=== PATIENT | male | born 1995 | race Caucasian/White ===

== ENCOUNTER 2019-03-03 09:29 | Emergency (ER) | payer OTHER ==
[2019-03-03] MEDS ORDERED: NORCO 10-325 T1 EACH PO (10:58)
--- NOTE | 2019-03-03 11:33 | NUR ---
MET WITH PT AFTER HE RETURNED FROM IMAGING. HE IS ALERT, ORIENTED AND ALSO SUPPORTED BY 2 FELLOW WORKERS. PT IS IN A NECK BRACE, PAIN AT 4, AND HIS MOTHER AND G.FRIEND HAVE BEEN NOTIFIED IN [place] BY LAKESHIA PALOMARES. MODIFIED TRAUMA ACTIVATED A RESULT OF PT FALLING OFF A 24 FT LADDER AT WORK. CONNECTED WELL WITH PT AND FRIENDS, PT DECLINED PRAYER AT THIS TIME. WILL FOLLOW NEEDED
== END 2019-03-03 11:34 | disposition home or self-care (01) ==
LOC: ED 09:29
DX: S09.90XA Unspecified injury of head, initial encounter (principal); S42.352A Displaced comminuted fracture of shaft of humerus, left arm, initial encounter for closed fracture; S51.032A Puncture wound without foreign body of left elbow, initial encounter; F17.200 Nicotine dependence, unspecified, uncomplicated; Z23 Encounter for immunization; W11.XXXA Fall on and from ladder, initial encounter
CPT/HCPCS: 70450; 71260; 72125; 73060; 74177; 80053; 83690; 85025; 85610; 85730; 90471; 90715; 99284-25; G0480; J2270; J2405; J7030; Q9967

== ENCOUNTER 2019-03-11 05:50 | Day surgery (SDC) | payer OTHER ==
[~2019-03-11] VITALS: Ht 185.4 cm; Wt 94.3 kg
[~2019-03-11 05:50] MED LIST: IBUPROFEN200 MG PO; MELATONIN5 M2 PO; MEN'S MULTIVIT1 EACH PO; MIRALAX17 GM PO; NORCO 10-325 T1 EACH PO
[2019-03-11] MEDS ORDERED: IBUPROFEN200 M1 PO (06:15)
[2019-03-11] MEDS ORDERED: EXCEDRIN MIGRA1 EAC2 PO (06:16)
--- NOTE | 2019-03-11 09:20 | NUR ---
03/11/19 0920 Katarzyna Sargent 0910 PATIENT ARRIVES TO PACU SLEEPING, DOES NOT RESPOND TO VERBAL STIMULI. RESP EVEN AND UNLABORED, ROOM AIR SATS 95%. PATIENT HAS CHRISTINE DRESSING IN PLACE, ARM IN SLING. 09 DR KLEIN REQUESTING OVERNIGHT ADMISSION FOR OBSERVATION OF LEFT ARM SWELLING POST OP, BARGE HAND AWARE. 09 PATIENT OPENS EYES TO VERBAL STIMULI. RESP EVEN AND UNLABORED, ROOM AIR SATS 96%.
--- NOTE | 2019-03-11 11:45 | NUR ---
PT REQUESTED PAIN MEDICATION FOR 5/10 PAIN. LESS THAN DIME SIZE SPOT OF BLOOD ON CHRISTINE DRESSING. PT REPORTS NUMBNESS AND TINGLING IN LEFT HAND. GENERALIZED SWELLING IN LEFT HAND, X-RAY TAKEN IN PACU. PT TOLERATING WATER, JUICE AND JELLO WELL. ADVANCED DIET TO REGULAR. CYRO CUFF IN PLACE.
--- NOTE | 2019-03-11 12:34 | NUR ---
VITAL SIGNS TAKEN, WNL. PULSE +2 TO LUE. GENERAL SWELLING, NON-PITTING. SOME NUMBESS REPORTED. CAP REFILL <3. CRYOCUFF IN PLACE. PT DENIES PAIN. CALL LIGHT IN REACH.
--- NOTE | 2019-03-11 13:38 | NUR ---
PT REPORTS FINGERS OF LEFT HAND ARE "AWAKE" BUT THUMB IS STILL NUMB. PALM AND BACK OF HAND STILL HAVE GENERALIZED SWELLING. PT STATES PAIN WAS CONTROLLED BY PRN OXY. TOLERATED REG DIET WELL. CYRO CUFF IN PLACE. DRAINAGE ON PICCO DRESSING IS UNCHANGED, OUTLINED.
--- NOTE | 2019-03-11 16:16 | NUR ---
Family was thinking DR John would be coming back to talk to them tonight. I asked what questions they had, They wanted to make sure a work note would be provided, I answered yes at discharge. They are also wanting to know what the results are for the hand x-ray. I called DR John and informed him of these requests, He states will be in to see them tomorrow morning. Also I informed the MD of the results of the hand x-ray, there is a broken bone, states I can tell patient results and DR John will talk to them more about the results tomorrow.
--- NOTE | 2019-03-11 17:03 | NUR ---
PT ARRIVED ON THE FLOOR AWAKE AND ALERT FROM PACU. PT TOLERATED PO INTAKE WELL, VOIDING WELL. PAIN WELL CONTROLED WITH PRN PO OXY. FAMILY REMAINS AT BEDSIDE. FAMILY HAD QUESTIONS, FLORAL DESIGNER CALEB CALLED DR KLEIN TO CLAIFY ANSWERS. FAMILY TOLD OF ANSWERS. PT REQUESTED CYRO-CUFF BE TURNED OFF FOR A LITTLE WHILE. NO NAUSEA, ITCHING. LEFT HAND REMAINS SWOLLEN. DR KLEIN AWARE OF XRAY RESULTS PER LAKESHIA VALDERRAMA.
--- NOTE | 2019-03-11 18:59 | NUR ---
FILLED PATIENT'S CRYO.
--- NOTE | 2019-03-11 19:53 | NUR ---
CALL LIGHT ON. pt REPORTED "THE NERVE BLOCK IS WEARING OFF AND IT'S STARTING TO HURT". CHRISTINE DRESSING CDI, DIME SIZED OLD SHADOWING. pt REPORTED NUMBNESS IN THUMB IS GONE AND HE HAS NORMAL FEELING IN HAND. MD CALLED, NEW ORDER ENTERED.
--- NOTE | 2019-03-11 20:00 | NUR ---
CHARGE NURSE ROUNDING NOTE: L ARM DRESSING , SLING IN LEFT ARM. IVF INFUSING W/O PROBLMES. NO REQUESTS. FRESH WATER AND CALL LIGHT AT BEDSIDE. WATCHING TV
--- NOTE | 2019-03-11 21:55 | NUR ---
ASSESSMENT DONE. pt RESTING IN BED, VISITORS AT BEDSIDE. REPORTED DECREASING PAIN. EDUCATED ON PAIN MANAGEMENT. FOUND CRYOCUFF UNPLUGGED, pt REPORTED UNPLUGGING IT TO "GIVE IT A LITTLE BREAK". EDUCATED ON THE IMPORTANCE OF COLD THERAPY. SLING IN PLACE. CHRISTINE DRESSING CDI. BLINKING GREEN. CRYOCUFF PLUGGED IN AND APPLIED TO AREA. LEFT ARM ELEVATED. READJUSTED FOR COMFORT. LEFT HAND SWOLLEN, APPLIED ICE. PULSE GOOD, CAPILLARY REFILL <3 SECONDS, ELEVATED. WILL CONTINUE TO MONITOR PAIN, VISITOR REPORTED THAT OXY WAS NOT EFFECTIVE FOR pt AND NORCO IS WHAT pt HAS BEEN TAKING, NOTED AND WILL ADDRESS WITH MD IN MORNING pt IS EXPERIENCING PAIN RELIEF FROM CURRENT MEDS. CALL LIGHT WITHIN REACH.
--- NOTE | 2019-03-11 23:46 | NUR ---
CALL LIGHT ON. VISITOR REPORTING pt IN TEARS FROM PAIN. CALLED MD. NEW ORDERS ENTERED.
--- NOTE | 2019-03-12 00:12 | NUR ---
PRN PAIN MED AND SCHEDULED GIVEN (SEE MAR). SISTER AND GIRLFRIEND AT BEDSIDE. pt COPING BETTER AFTER BREATHING EXERCISES. CRYOCUFF REFRESHED. WILL CONTINUE TO MONITOR. CALL LIGHT WITHIN REACH.
--- NOTE | 2019-03-12 00:37 | NUR ---
ROUNDED ON pt. RESTING IN BED, RESPIRATIONS 20. pt STILL IN PAIN DID NOT RATE JUST "BETTER". FOUND CRYOCUFF OFF, pt STATED "IT'S BETTER IF IT'S ON FOR A BIT AND THEN OFF FOR A BIT" EDUCATED ON USE OF CRYOCUFF. pt VERBALIZED UNDERSTANDING. SISTER AND GIRLFRIEND AT BEDSIDE. REFRESHED WATER. CALL LIGHT WITHIN REACH.
--- NOTE | 2019-03-12 01:09 | NUR ---
pt RESTING WITH EYES CLOSED, RESPIRATIONS REGULAR, RATE = 20. CALL LIGHT WITHIN REACH. CRYOCUFF ON.
--- NOTE | 2019-03-12 02:14 | NUR ---
VITALS SIGNS DUE. VSS, I&O RECORDED. pt ROUSED EASILY ALTHOUGH CONFUSED, QUICKLY FELL BACK TO SLEEP. ASSESSMENT DONE. DRAINAGED SPOT ON CHRISTINE INCREASED TO HALF DOLLAR SIZED, CDI. CRYOCUFF ON. SLING ON. HAND ELEVATED. PULSES STRONG, CAP REFILL <3 SECONDS. DID NOT WAKE ENOUGH TO ANSWER QUESTIONS ABOUT PAIN. CALL LIGHT WITHIN REACH.
--- NOTE | 2019-03-12 03:07 | NUR ---
PATIENT HAS BEEN SLEEPING. PATIENT HAS FAMILY IN THE ROOM. PATIENT IS INDEPEDENT IN ROOM. FRESH WATER AND ICE WAS GIVEN. NO OTHER CARES NEEDED.
--- NOTE | 2019-03-12 04:12 | NUR ---
ROUNDED ON pt. AWAKE, RATED PAIN 4/10. PRN PAIN MED GIVEN (SEE MAR). CHRISTINE DRESSING CDI, NO NEW SHADOWING, FLASHING GREEN. CRYOCUFF TO ARM. CALL LIGHT WITHIN REACH.
--- NOTE | 2019-03-12 04:48 | NUR ---
pt HAD POOR PAIN CONTROL AT BEGINING OF SHIFT. MD AWARE. NEW PAIN MEDS EFFECTIVE. FAMILY AT BEDSIDE ALL OF SHIFT. DID REST FOR A COUPLE HOURS. INDEPENDENT IN ROOM. VOIDING QS. IV SL. TOLERATING REGULAR DIET. pt HAS USED CRYOCUFF ON AND OFF, EDUCATION DONE. CHRISTINE FLASHING GREEN. LEFT ARM IN SLING AND ELEVATED. ICE TO SWOLLEN LEFT HAND. USES CALL LIGHT APPROPRIATELY.
--- NOTE | 2019-03-12 05:50 | NUR ---
pt SITTING IN BED. VSS, I&O RECORDED. UP TO TOILET TO VOID. FAMILY AT BEDSIDE. RATED PAIN 4/10. LINENS CHANGED. NO REQUESTS AT THIS TIME. CALL LIGHT WITHIN REACH.
--- NOTE | 2019-03-12 07:12 | NUR ---
RECIEVED BEDSIDE REPORT FROM LAKESHIA HEMPHILL. PT HAD ISSUES WITH PAIN CONTROL ONCE THE BLOCK WORE OFF. PT AWAKE AND ALERT. PT STATED THAT HE FELT OK AT THIS TIME, LEFT HAND IS STILL SWOLLEN.
[2019-03-12] MEDS ORDERED: HYDROCODON-ACE1 EAC8 PO (08:45)
[2019-03-12] MEDS ORDERED: GABAPENTIN300 MG PO (08:45)
--- NOTE | 2019-03-12 09:51 | NUR ---
DISCHARGE TEACHING COMPLETE. DISCUSSED FOLLOW-UP, WHEN TO CALL THE DR, AND ACTIVITY. PT AND FAMILY VERBALIZED UNDERSTANDING. WRITTEN AND VERBAL INSTRUCTIONS GIVEN. IV REMOVED. VITALS TAKEN. ADJUSTED SLING.
--- NOTE | 2019-03-12 10:04 | NUR ---
FAMILY OF PT CALLED, STATING THAT DR KLEIN HAD MENTIONED NEEDING A SPLINT FOR THE LEFT HAND. NO ORDERS FOUND FROM DR KLEIN RE: SPLINT. CALLED DR KLEIN FOR A TELEPHONE ORDER TO APPLY A REGULAR, POST-OP SLINT TO LEFT HAND. ORDER READ BACK.
--- NOTE | 2019-03-12 10:14 | NUR ---
LEFT MSG FOR PT'S SISTER TO CALL BACK TO THE UNIT RE: SPLINT.
--- NOTE | 2019-03-12 10:34 | NUR ---
PT RETURNED TO FORMULA MAKER AND CALLED DOWN TO MED/SURG. CONSERVATION SCIENCE OFFICER YVETTE WENT DOWN TO APPLY SPLINT.
--- NOTE | 2019-03-14 06:29 | OR ---
[facility] [address] [place], [place] [address] Signed DATE OF OPERATION: SURGEON: Smith John MD DATE OF PROCEDURE: 03/11/2019 PREOPERATIVE DIAGNOSIS: Left humeral fracture, comminuted midshaft. POSTOPERATIVE DIAGNOSIS: Left humeral fracture, comminuted midshaft. PROCEDURE PERFORMED: Open reduction and internal fixation of left humerus fracture. COLLECTION SYSTEMS FOREMAN: Rosio Lovett PA-C. ANESTHESIA: General. BLOOD LOSS: 175 mL. IMPLANTS: Eight hole 4.5 mm plate with eight 4.5 screws and two 3.5 interfragmentary screws. BRIEF HISTORY: Prem is a 24-year-old gentleman who fell about 24 feet off the ladder landing on a concrete surface. He had laceration to his elbow and a comminuted midshaft fracture, was substantially displaced and angulated. This was a high-energy incident. The fracture was closed and was treated in a sling and the swelling was allowed to resolve. However, it only improved some. Risks, benefits, alternatives of surgery were discussed with him due to the displacement, which was about 150%, he elected to proceed. DESCRIPTION OF PROCEDURE: Once consent was obtained, he was taken to the operating room. After adequate anesthesia, he was placed on operating room table. All downside pressure points were well padded. The left arm was then prepped and draped in a standard sterile fashion up to the nape of the neck. The standard extensile anterolateral approach was started at Electronically Signed By: SMITH JOHN MD 03/14/19 0629 PATIENT NAME: PREM CHILD OPERATIVE REPORT DATE OF : [birth year] REPORT #: [id number] PHYSICIAN: SMITH JOHN MD PCP: BRYANT JOSHI MD REPORT IS CONFIDENTIAL AND NOT TO BE RELEASED WITHOUT AUTHORIZATION [facility] [address] [place], [place] [address] Signed mid deltoid and extended distally approximately 20 cm. It was taken through skin and subcutaneous tissue. Proximally, the cephalic vein was identified and retracted actually medially in this case. The interval between the deltoid and the biceps was then entered bluntly and the fracture was easily palpable. The interval between the biceps and brachialis was opened distally. The brachialis was then split between the anterior 3rd and posterior 2/3rd. It was then elevated off the anterior humerus. Proximally, the biceps and part of the deltoid insertion was elevated. The fracture was then cleaned under direct vision and reduced using two large bone clamps. Required longitudinal traction, a little bit of varus and angulation. We then checked using image intensifier, was found to be good. I could not really get two clamps on it to hold it because of the comminuted butterfly fragment medially. We then elected to place the plate on the distal shaft of the humerus, aligned it anatomically, and put a screw into it. We then reduced the fracture such that the plate was aligned superiorly and inferiorly. This was then clamped using a Verbrugge clamp and checked again, found to be satisfactory. Two screws were then placed in the proximal piece and the reduction was maintained and all remaining screw holes were drilled and appropriate length screws were placed. We did visualize the musculocutaneous nerve anteriorly and palpated the radial nerve posteriorly, which was not in the fracture site. The image intensifier was brought in. The fracture reduction was found to be good. There was a large posteromedial butterfly fragment. I was able to get a bone hook around this fragment and reduced it pretty closed to its natural position. We then placed two 3.5 mm screws into the butterfly fragment from the anterolateral cortex. This secured the butterfly fragment reasonably well. Once this was completed, range of motion showed good stability. Wound was copiously irrigated with antibiotic solution and closed with 2-0 Vicryl and #0 Stratafix for the fascia. The same for the subcutaneous tissue and gama for the skin. It was dressed with a CHRISTINE wound VAC dressing and he was awakened, taken to the recovery room in satisfactory condition. All sponge, needle, and instrument counts were correct. Smith John MD BA/MODL /[id number] cc: Bryant Joshi MD Electronically Signed By: SMITH JOHN MD 03/14/19 0629 PATIENT NAME: PREM CHILD OPERATIVE REPORT DATE OF : [birth year] REPORT #: [id number] PHYSICIAN: SMITH JOHN MD PCP: BRYANT JOSHI MD REPORT IS CONFIDENTIAL AND NOT TO BE RELEASED WITHOUT AUTHORIZATION [address] [address] Signed Copies: BRYANT JOSHI MD ~ Electronically Signed By: SMITH JOHN MD 03/14/19 0629 PATIENT NAME: PREM CHILD RASTA OPERATIVE REPORT DATE OF : [birth year] REPORT #: [id number] PHYSICIAN: SMITH JOHN MD PCP: BRYANT JOSHI MD REPORT IS CONFIDENTIAL AND NOT TO BE RELEASED WITHOUT AUTHORIZATION
== END 2019-03-12 09:47 | disposition home or self-care (01) ==
LOC: DS 05:50 → OPS 05:50 → DS 06:45 → OPS 06:45 → MS 10:15 → OPS 03-12 09:47
PROVIDERS: Specialist
PROC: 0PSG04Z Reposition Left Humeral Shaft with Internal Fixation Device, Open Approach (ICD-10-PCS; principal; 2019-03-11 06:45)
DX: S42.352A Displaced comminuted fracture of shaft of humerus, left arm, initial encounter for closed fracture (principal); S83.422A Sprain of lateral collateral ligament of left knee, initial encounter; G58.9 Mononeuropathy, unspecified; Z79.899 Other long term (current) drug therapy; Z79.82 Long term (current) use of aspirin; W11.XXXA Fall on and from ladder, initial encounter
CPT/HCPCS: 01740; 64415; 73060; 73130; 76942; C1713; J0131; J0330; J0690; J1100; J1885; J2250; J2405; J2704; J2795; J3010; J3475; J7120

== ENCOUNTER 2020-04-09 20:04 | Emergency (ER) | payer OTHER ==
[~2020-04-09] VITALS: Ht 185.4 cm; Wt 97.5 kg
[~2020-04-09 20:04] MED LIST changes: +EXCEDRIN MIGRA1 EAC2 PO; +GABAPENTIN300 MG PO; +HYDROCODON-ACE1 EAC8 PO; +IBUPROFEN200 M1 PO
[2020-04-09] MEDS ORDERED: IBU600 MG PO (21:20)
== END 2020-04-09 21:46 | disposition home or self-care (01) ==
LOC: ED 20:04
PROC: 2W3FX1Z Immobilization of Left Hand using Splint (ICD-10-PCS; principal; 2020-04-09)
DX: S62.327A Displaced fracture of shaft of fifth metacarpal bone, left hand, initial encounter for closed fracture (principal); F17.200 Nicotine dependence, unspecified, uncomplicated; W01.0XXA Fall on same level from slipping, tripping and stumbling without subsequent striking against object, initial encounter
CPT/HCPCS: 29125; 73130; 99283-25; A9270

== ENCOUNTER 2022-02-19 04:50 | Emergency (ER) | payer OTHER ==
[~2022-02-19] VITALS: Ht 185.4 cm; Wt 98.9 kg
[~2022-02-19 04:50] MED LIST changes: +HYDROCODON-ACE1 EA11 PO; +IBU600 MG PO
[2022-02-19] MEDS ORDERED: STOOL SOFTENER250 MG PO (05:36)
[2022-02-19] MEDS ORDERED: METAMUCIL660 GM PO (05:36)
[2022-02-19] MEDS ORDERED: ANECREAM5 GM TOP (05:36)
== END 2022-02-19 05:57 | disposition home or self-care (01) ==
LOC: ED 04:50
DX: K60.2 Anal fissure, unspecified (principal); F17.200 Nicotine dependence, unspecified, uncomplicated
CPT/HCPCS: 99283

== ENCOUNTER 2023-09-07 16:52 | Emergency (ER) | payer SELFPAY ==
[~2023-09-07] VITALS: Ht 185.4 cm; Wt 98.1 kg
[~2023-09-07 16:52] MED LIST changes: +ANECREAM5 GM TOP; +METAMUCIL660 GM PO; +STOOL SOFTENER250 MG PO
[2023-09-07 18:00] LABS: BILIRUBIN, URINE NEGATIVE (negative); BLOOD/HGB, URINE NEGATIVE (Negative); KETONE, URINE NEGATIVE (Negative); LEUK ESTERASE, URINE NEGATIVE (negative); NITRITE, URINE NEGATIVE (negative); PH, URINE 5.5 (5-7)
[2023-09-07 18:02] LABS: AMPHETAMINES, UR NEGATIVE (NEGATIVE); BARBITURATES, UR NEGATIVE (NEGATIVE); BENZODIAZEPINES, UR NEGATIVE (NEGATIVE); BUPRENORPHINE,UR NEGATIVE (NEGATIVE); COCAINE, UR NEGATIVE (NEGATIVE); MARIJUANA (THC), UR NEGATIVE (NEGATIVE); MDMA, UR NEGATIVE (NEGATIVE); METHADONE, UR NEGATIVE (NEGATIVE); METHAMPHETAMINE, UR NEGATIVE (NEGATIVE); OPIATES, UR NEGATIVE (NEGATIVE); OXYCODONE, UR NEGATIVE (NEGATIVE); PHENCYCLIDINE, UR NEGATIVE (NEGATIVE); TRICYCLIC ANTIDEPRESSANT, UR NEGATIVE (NEGATIVE)
[2023-09-07 18:12] LABS: BASOPHILS 0.5 % (0-2); MCHC 34.2 g/dl (30-36)
[2023-09-07 18:15] LABS: EOSINOPHILS 2.2 % (0-6); HEMATOCRIT 44.8 % (35.0-50.0); HEMOGLOBIN 15.3 g/dL (12.0-18.0); LYMPHOCYTES 28.5 % (24-44); MCH 31.5 (27-36); MCV 92.1 fl (81-99); MONOCYTES 8.1 % (0-12); NEUTROPHILS 60.7 % (39-80); PLATELET COUNT 321 K/uL (140-440); RBC 4.86 M/ul (4.3-5.7); RDW 13.5 (10.5-15.0)
[2023-09-07 18:35] LABS: ACETAMINOPHEN 0 ug/mL (10-30); ALBUMIN 4.6 g/dL (3.4-5.0); ALBUMIN/GLOBULIN RATIO 1.18 (1.1-2.4); ALCOHOL, MEDICAL 85 ng/dL (<3); ALKALINE PHOSPHATASE 89 U/L (46-116); ALT (SGPT) 47 U/L (14-59); AST (SGOT) 25 U/L (15-37); BILIRUBIN, TOTAL 0.3 ng/dL (0.2-1.0); BUN/CREATININE RATIO 17.33 (6.0-28.6); CALCIUM 9.3 mg/dL (8.5-10.1); CARBON DIOXIDE 25 mmol/L (21-32); CHLORIDE 104 mmol/L (98-107); CREATININE, SERUM 0.75 mg/dL (0.70-1.30); GLOMERULAR FILTRATION RATE,EST 127 mL/min (>60); PROTEIN, TOTAL 8.5 g/dL (6.4-8.2); SALICYLATE 2.7 mg/dL (2.8-20.0); TSH, 3RD GENERATION 1.699 uIU/mL (0.358-3.740); UREA NITROGEN 13 mg/dL (7-18)
[2023-09-08 11:18] VITALS: BP 147/99
== END 2023-09-08 11:18 | disposition home or self-care (01) ==
LOC: ED 16:52
PROVIDERS: Emergency Medicine
DX: R45.851 Suicidal ideations (principal); F17.200 Nicotine dependence, unspecified, uncomplicated
CPT/HCPCS: 36415; 80053; 81003; 84443; 85025; G0480